=== PATIENT | male | born 1940 | race Caucasian/White ===

== ENCOUNTER 2018-02-23 11:41 | Observation (INO) | payer MEDICARE, BC ==
[2018-02-22 22:45] VITALS: BP 152/78
[2018-02-23] VITALS (19 sets, daily range): BP systolic 119–185; BP diastolic 47–84
[~2018-02-23] VITALS: Ht 172.7 cm; Wt 97.1 kg
[2018-02-23 12:31] LABS: HEMATOCRIT 37.2 % (42.0-52.0); HEMOGLOBIN 12.4 gm/dL (14.0-18.0); MCH 31.7 pg (26.0-34.0); MCHC 33.3 g/dL (28.0-37.0); MCV 95.1 fL (80.0-100.0); MPV 9.3 fl. (7.2-11.1); RBC 3.91 mil/uL (4.50-6.00); RDW-CV 15.5 % (10.5-14.5); WBC 3.8 thou/uL (4.0-11.0)
[2018-02-23 12:36] LABS: ANION GAP 9 mmol/L (7-16); BUN 13 mg/dL (7-18); CALCIUM 8.8 mg/dL (8.5-10.1); CHLORIDE 109 mmol/L (98-107); CO2 25 mmol/L (21-32); GLUCOSE 80 mg/dL (70-99); POTASSIUM 3.8 mmol/L (3.5-5.1); SODIUM 143 mmol/L (136-145)
[2018-02-23 12:40] LABS: ALBUMIN 3.4 g/dL (3.4-5.0); ALKALINE PHOSPHATASE 54 U/L (46-116); CHOLESTEROL 251 mg/dL (<200); HDL CHOLESTEROL 41 mg/dL (>40); LDL CHOLESTEROL 156 mg/dL (<100); SGOT 31 U/L (15-37); SGPT 38 U/L (30-65); TC:HDL 6.1 Ratio (Not establshd); TOTAL BILIRUBIN 0.9 mg/dL (<0.1-1.0); TOTAL PROTEIN 7.3 g/dL (6.4-8.2); TRIGLYCERIDE 274 mg/dL (<150); VLDL 55 mg/dL (<40)
[2018-02-23 12:41] LABS: APTT 25.9 Seconds (25.0-31.3); INR 1.2; PROTIME 11.3 Seconds (9.20-11.50); SERUM ASSESSMENT Clear
[2018-02-23] MEDS ORDERED: LANTUS100 UNIT/M SUBQ (12:45)
[2018-02-23] MEDS ORDERED: METFORMIN HCL500 MG PO (12:46)
[2018-02-23] MEDS ORDERED: HUMALOG100 UNIT/2 SUBQ (12:46)
[2018-02-23] MEDS ORDERED: COZAAR 50 MG TA50 M2 PO (12:47)
[2018-02-23] MEDS ORDERED: OXYBUTYNIN 5 MG5 M2 PO (12:49)
[2018-02-23] MEDS ORDERED: PROTONIX40 M1 PO (12:50)
--- NOTE | 2018-02-23 15:27 | EKG ---
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1940 Requested By: Suresh Ibanez Order Number: [id number] Reading MD: Suresh Ibanez Measurements Intervals [place] Rate: 74 P: -32 TN: 228 QRS: 29 QRSD: 89 T: 202 QT: 363 QTc: 403 Interpretive Statements Sinus rhythm Prolonged TN interval Abnormal T, consider ischemia, diffuse leads No previous ECG available for comparison Electronically Signed On 02-23-2018 15:27:10 CDT by Suresh Ibanez [email or web address] <ELECTRONICALLY SIGNED> By: Suresh Ibanez MD, [facility] 02/23/18 1527 1256 1256 Suresh Ibanez MD, [facility] /EPI
--- NOTE | 2018-02-23 16:47 | NUR ---
PT TRANSFERRED TO ROOM 231. RECEIVED REPORT FROM PRESCHOOL TEACHER'S ASSISTANT STAFF.PATIENT ALERT AND ORIENTED X4.VITAL SIGNS TAKEN AND RECORDED. CARDIAC MONITORING IN PLACE. PT ON RA WITH O2 SAT OF 96%. PT ON SR 1ST DEG ON TELE.PT IV LINE ON RAC PATENT, INTACT AND INFUSING WELL. ADMISSION HISTORY AND ASSESSMENT COMPLETED CHARTED. PT ORIENTED TO ROOM AND CALL LIGHT. PTS DAUGHTER IN LAW AT BEDSIDE.POST CATH SITE TO RIGHT GROIN CLEAN, DRY AND INTACT. PT INSRUCTED ON POST CATH INSTRUCTIONS. PT COMMUNICATES UNDERSTANDING.DENIES ANY PAIN OR DISCOMFORT. CALL LIGHT WITHIN REACH. WILL CONTINUE TO MONITOR PT.
[2018-02-24 04:00] VITALS: BP 143/53
--- NOTE | 2018-02-24 04:57 | NUR ---
PATIENT RESTED IN BED, NO ACUTE CHANGES. PATIENT DID NOT SHOW SIGNS OF DISTRESS. FALL PRECAUTIONS IN PLACE, BED ALARM ON, CALL LIGHT WITHIN REACH, HOURLY ROUNDING OBSERVED.
[2018-02-24 05:05] LABS: HEMATOCRIT 33.3 % (42.0-52.0); HEMOGLOBIN 11.3 gm/dL (14.0-18.0); MCH 32.2 pg (26.0-34.0); MCHC 33.9 g/dL (28.0-37.0); MPV 9.4 fl. (7.2-11.1); RBC 3.5 mil/uL (4.50-6.00); RDW-CV 15.4 % (10.5-14.5); WBC 3.2 thou/uL (4.0-11.0)
[2018-02-24 05:16] LABS: ALBUMIN 2.7 g/dL (3.4-5.0); CALCIUM 8.6 mg/dL (8.5-10.1); CREATININE 0.8 mg/dL (0.6-1.3); POTASSIUM 3.7 mmol/L (3.5-5.1); TOTAL BILIRUBIN 0.9 mg/dL (<0.1-1.0); TOTAL PROTEIN 5.8 g/dL (6.4-8.2); TROPONIN-I LEVEL 0.07 ng/mL (<0.06)
[2018-02-24 07:30] VITALS: BP 117/57
[2018-02-24 09:07] VITALS: BP 117/57
[2018-02-24] MEDS ORDERED: ASPIR 8181 MG PO (09:44)
[2018-02-24] MEDS ORDERED: ZETIA10 MG PO (09:45)
--- NOTE | 2018-02-24 09:46 | NUR ---
VSS, ASSUMED CARE IN THE AM, ASSESSMENT PERFORMED AND CHARTED, FALL PRECAUTIONS IN PLACE AND CALL LIGHT IN REACH, PT IS UP WITH ONE AND CANE, PT IS ON RA AND IS TRACING SR ON THE MONITOR, PT IS A&O4 AND DENIES ANY PAIN, CATH SIT IS C/D/I AND HIS GAOL IS TO D.C TO HOME ON DAY OF CARE.
[2018-02-24] MEDS ORDERED: NITROSTAT0.4 MG SUBLING (09:50)
[2018-02-24] MEDS ORDERED: NORVASC10 MG PO (09:51)
[2018-02-24] MEDS ORDERED: BRILINTA90 MG PO (09:52)
[2018-02-24] MEDS ORDERED: CRESTOR40 MG PO (09:54)
[2018-02-24 10:31] VITALS: BP 117/57
[2018-02-24 11:34] VITALS: BP 117/57
[2018-02-24 12:10] VITALS: BP 92/43
--- NOTE | 2018-02-24 12:45 | NUR ---
VSS, RECIEVED D/C INSTRUCTIONS FILLED OUT ORDERS AND TOOK OUT IV AND TELE MONITOR, PT DENIES ANY QUESTIONS OR CONCERNS AT TIME OF D/C. PT WALKED OUT VIA WHEEL CHAIR BY STAFF, ALL BELONGINGS GATHERED AND PLACED WITH PT, HOURLY ROUNDS COMPLETED.
--- NOTE | 2018-02-24 14:59 | EKG ---
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: : 1940 Requested By: Gareth Piña Order Number: [id number] Chikis MD: Gareth Piña Measurements Intervals [place] Rate: 69 P: -4 VA: 238 QRS: 34 QRSD: 97 T: 193 QT: 384 QTc: 412 Interpretive Statements Sinus rhythm Atrial premature complex Prolonged VA interval Repol abnrm suggests ischemia, anterolateral Compared to ECG 02/23/2018 12:56:28 Atrial premature complex(es) now present Early repolarization now present T-wave abnormality no longer present Possible ischemia still present Electronically Signed On 02-24-2018 14:58:56 CDT by Gareth Piña [email or web address] <ELECTRONICALLY SIGNED> By: Gareth Piña MD, [facility] 02/24/18 1458 1624 1624 Gareth Piña MD, [facility] /EPI
--- NOTE | 2018-02-24 15:04 | EKG ---
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: : 1940 Requested By: Gareth Piña Order Number: [id number] Reading MD: Gareth Piña Measurements Intervals [place] Rate: 72 P: -26 ND: 220 QRS: 38 QRSD: 98 T: 210 QT: 374 QTc: 410 Interpretive Statements Sinus rhythm Prolonged ND interval Repol abnrm suggests ischemia, anterolateral Compared to ECG 02/23/2018 12:56:28 Early repolarization now present T-wave abnormality no longer present Possible ischemia still present Electronically Signed On 02-24-2018 15:04:02 CDT by Gareth Piña [email or web address] <ELECTRONICALLY SIGNED> By: Gareth Piña MD, [facility] 02/24/18 1504 0750 0750 Gareth Piña MD, [facility] /EPI
--- NOTE | 2018-02-27 12:20 | CARD ---
[address] [address] CARDIAC CATH REPORT Name: KEENAN BANG Room: [address] Mikael Diaz#: [id number] Admission: 02/23/18 Attend Phys: Suresh Ibanez MD Discharge: 02/24/18 Date of : 41 Report #: [id number] THIS REPORT FOR: //name// APPROVED REPORT Study performed: 02/23/2018 12:08:32 Patient Details Patient Status: Out-Patient Room #: The patient is a 77 year-old male Event Personnel Suresh Ibanez Assistant Prosecuting Attorney, Isamar Greene RN Automatic Blocker, Emerald Mata, Makayla Parra RTR ScrubWang John Toy Designer Procedures Performed Art Access - R femoral artery* Left Heart Cath Coronaries, Bypass Grafts [id number] LHCCORCABG RICHY Revasc Graft Single RCA C9604 SVGREVSING Indication Positive stress test Risk Factors Hypercholesterolemia, Hypertension Previous Procedures/Diagnoses Previous CABG Admission/Lab Medications/Medications given during procedure Aspirin, Platelet Aff. Inhib., Angiomax bolus and infusion Procedure Narrative The patient was brought electively to the Cardiac Catheterization Laboratory and was prepped and draped in a sterile manner. The right femoral was infiltrated with 2% Lidocaine subcutaneous anesthesia. A 6fr Ultimum Sheath sheath was inserted into the right femoral artery. Coronary angiography was performed using coronary diagnostic catheters. The right coronary system was accessed and visualized with a 6fr JR 4 catheter. The left coronary system was accessed and visualized with a 6fr JL 4 catheter. The left ventricle was accessed and visualized with a 6fr Angled Pigtail catheter. Left ventricular/Aortic Valve gradient assessed via catheter pullback. Left ventriculogram was performed in [place] [address] CARDIAC CATH REPORT Name: KEENAN BANG Room: [address]#: [id number] Admission: 02/23/18 Attend Phys: Suresh Ibanez MD Discharge: 02/24/18 Date of : 41 Report #: [id number] femoral angiogram was performed . Closure device was deployed with a 6 Fr Angioseal STS 6Fr. The patient tolerated the procedure well and there were no complications associated with the procedure. There was no hematoma. Intraoperative Conscious Sedation Sedation start time: 13:36 Case end Time: 14:50 Fentanyl 50.0 mcg Versed 3.0 mg Fluoro Time: 29.7 minutes Dose: DAP 795645 cGycm2 4226.45 mGy Contrast Type and Amount: Omnipaque 215 ml Coronary Angiography The patient's coronary anatomy is right dominant. [place] Artery Percent Stenosis #1 widely patent saphenous vein graft to marginal branches of the circumflex #2 patent saphenous vein graft to the distal right coronary artery with 90% ostial stenosis #3. [place] filling of a patent [place] graft Diagnostic Cath Left Main 30% diffuse narrowing LAD 100% proximal occlusion Circumflex 100% mid vessel occlusion Right Coronary 100% mid vessel occlusion Left Ventriculography The left ventricle is normal in size with normal contractility. The left ventricular ejection fraction is estimated to be 65%. Left ventricular wall motion abnormalities are not present. There is no mitral insufficiency. Hemodynamics The aortic pressure is 146/59 mmHg with a mean of mmHg. The left ventricular pressure is 152/7 mmHg with a mean of mmHg. The left ventricular end diastolic pressure is 21 mmHg. There was no gradient across the aortic valve upon pullback. PCI Technique Lesion Percutaneous coronary intervention was performed [place] [address] CARDIAC CATH REPORT Name: KEENAN BANG Room: [address]#: [id number] Admission: 02/23/18 Attend Phys: Suresh Ibanez MD Discharge: 02/24/18 Date of : 41 Report #: [id number] saphenous vein graft the right coronary artery. The lesion stenosis prior to intervention was 90% with AUTUMN 3 flow. A 6FR AR 1 SH Guide Catheter was used to engage the ostium. A IG: BMW 190cm Interventional Guidewire was used to cross the lesion. BALLOON DILATION A Balloon catheter Mini Trek RX 2.0 X 8 was inserted and inflated up to 16.00atm for 13seconds. Additional Inflation: 16.00atm for 11seconds. STENT DEPLOYMENT A drug-eluting stent Xience Alpine RX 2.5X8 was inserted and inflated up to 14.00atm for 12seconds. Additional Inflation: 16.00atm for 13seconds. Additional Inflation: 18.00atm for 13seconds. POST STENT DEPLOYMENT BALLOON DILATION A Balloon catheter NC Trek RX 2.75 X 8 was inserted and inflated up to 15.00atm for 10seconds. Additional Inflation: 18.00atm for 13seconds. Final angiography reveals 10 % stenosis with AUTUMN 3 flow. Conclusion #1 significant multivessel coronary artery disease characterized by the following: A 100 % proximal LAD occlusion B1 100% midcircumflex occlusion C1 100% occlusion of the midportion of the dominant right coronary artery #2 graft study characterized by the following A widely patent vein graft to 3 marginal branches of the circumflex B patent saphenous vein graft to the distal right coronary artery with 90% ostial stenosis C flush filling of a patent [place] graft to the LAD #3 normal left ventricular systolic function, estimated ejection fraction being 65% [place] [address] CARDIAC CATH REPORT Name: KEENAN BANG [address]#: [id number] Admission: 02/23/18 Attend Phys: Suresh Ibanez MD Discharge: 02/24/18 Date of : 41 Report #: [id number] #4 modest elevation of left ventricular end-diastolic pressure at rest #5 successful percutaneous coronary intervention with deployment of a drug-eluting stent at site of 90% ostial stenosis in the vein graft to the right coronary artery with 10% residual narrowing following stent deployment and AUTUMN-3 flow to the distal vessel Recommendations Cardiac Risk Reduction Program Aggressive Medical Therapy Medications Administered Aspirin (any) Ticagrelor Diagnostic Cath Approved by: Suresh Ibanez MD Date/Time: 02/27/18 at 1217 hrs. <ELECTRONICALLY SIGNED> By: Gareth Piña MD, FACC 02/27/18 1220 1220 1220Gareth Piña MD, FACC /INF
--- NOTE | 2018-02-28 11:50 | D ---
[facility] [address] [place] [address] DISCHARGE SUMMARY Name: KEENAN BANG Room: [address] Mikael Diaz#: [id number] Admission: 02/23/18 Attend Phys: Suresh Ibanez MD Discharge: 02/24/18 Date of : 42 Report #: [id number] THIS REPORT FOR: //name// CC: Nick Ibanez DATE OF SERVICE: 02/24/2018 FINAL DIAGNOSES: 1. Unstable angina. 2. Status post percutaneous coronary intervention to the saphenous vein graft to the obtuse marginal. 3. Status post coronary artery bypass graft. 4. Hypertension. 5. Diabetes. HOSPITAL COURSE: The patient is a 77-year-old male who has a history of ischemic cardiomyopathy and prior bypass surgery, had been having increasing shortness of breath and ultimately stress test was abnormal. He underwent a diagnostic cardiac catheterization, which showed patency of his [place] to LAD graft, patency of his saphenous vein graft to diagonal, obtuse marginal vessels, but his right coronary artery vein graft had an 80% ostial stenosis. The ute artery was occluded. He tolerated the PCI with a drug-eluting stent to this vein graft. He will be discharged on Brilinta 90 mg p.o. b.i.d. and his other medications will remain unchanged. DISCHARGE MEDICATIONS: Include the following: Protonix 40 mg daily, losartan 100 mg daily, amlodipine 10 mg daily, baby aspirin 81 mg daily, Brilinta 90 mg p.o. b.i.d., insulin as directed by our office, ezetimibe 10 mg daily, and Crestor 40 mg daily. Followup in 1 month. <ELECTRONICALLY SIGNED> By: Suresh Ibanez MD, FACC 02/28/18 1150 1149 1831Suresh Ibanez MD, FACC /nt
--- NOTE | 2018-03-18 13:33 | H ---
[place] [address] HISTORY AND PHYSICAL Name: KEENAN BANG Room: [address] Mikael Diaz#: [id number] Admission: 02/23/18 Attend Phys: Suresh Ibanez MD Discharge: 02/24/18 Date of : 41 Report #: [id number] THIS REPORT FOR: //name// CC: Nick Ibanez DATE OF SERVICE: 02/23/2018 HISTORY AND PHYSICAL PREOP CATH CHIEF COMPLAINT: Chest pain and shortness of breath. HISTORY OF PRESENT ILLNESS: The patient is a 77-year-old man with a history of prior bypass surgery, had been having increasing shortness of breath and a subsequent nuclear stress test was abnormal. The symptoms occur with physical activity and not with rest. He has been compliant with his medical therapy. He has numerous cardiovascular risk factors with remote bypass surgery. He was evaluated with an outpatient nuclear stress test, which demonstrated the following; he was found to have a perfusion defect in the basal to mid inferior wall and preserved LV systolic function. PAST MEDICAL HISTORY: Significant for prior bypass surgery in 2007 with a [place] to LAD, saphenous vein graft to ramus intermedius and obtuse marginal, another saphenous vein graft to the right coronary artery, he has GERD, hypertension, hyperlipidemia. He has been somewhat intolerant to statins on a daily basis. He has insulin requiring diabetes, which is poorly controlled, obesity. PAST SURGICAL HISTORY: Bypass surgery. SOCIAL HISTORY: He is a former smoker, does not drink. REVIEW OF SYSTEMS: GASTROINTESTINAL: No bleeding or black colored stools. NEUROLOGIC: Denies numbness, weakness or slurred speech. Denies headaches or blurry vision. CARDIOVASCULAR: Positive dyspnea on exertion and occasional chest pain. SKIN: No rashes. GENITOURINARY: No dysuria or hematuria. MUSCULOSKELETAL: Positive arthritis. PCP: ____ [place] [address] HISTORY AND PHYSICAL Name: KEENAN BANG [address] [id number] Admission: 02/23/18 Attend Phys: Suresh Ibanez MD Discharge: 02/24/18 Date of : 41 Report #: [id number] LABORATORY DATA: Sodium 136, potassium 4.1, chloride 103, CO2 is 21, creatinine is 1.15. HOME MEDICATIONS: Amlodipine 10 mg daily, baby aspirin, insulin, losartan 100 mg daily, metformin 1000 mg p.o. b.i.d., nitroglycerin, Prilosec, and Crestor 20 mg, which he takes 3 days per week. PHYSICAL EXAMINATION: GENERAL: He is moderately obese, in no apparent distress. NECK: Supple. No jugular venous distention. CARDIOVASCULAR: Regular. There is no murmur. LUNGS: Clear to auscultation. ABDOMEN: Soft, nontender. EXTREMITIES: There is trace edema. SKIN: Warm and dry. IMPRESSION AND PLAN: 1. Dyspnea. This is probably an anginal equivalent given a stress test findings, in fact these were similar symptoms he had before his surgical revascularization. 2. Coronary artery disease. He has had prior bypass surgery. We will evaluate his bypass of his [place] arteries with a cardiac catheterization. The risks and benefits were described to the patient in lay terms. 3. Essential hypertension. 4. Hyperlipidemia. We will resurvey his lipids. <ELECTRONICALLY SIGNED> By: Suresh Ibanez MD, FACC 03/18/18 1333 1531 2111Suresh Ibanez MD, FACC /nt
== END 2018-02-24 12:45 | disposition home or self-care (01) ==
LOC: M.CL 11:41 → M.2W 15:04 → M.TBA-CV 15:04 → M.2W 15:24
PROVIDERS: Internal Medicine; ADMIT Internal Medicine Cardiovascular Disease
DX: I25.110 Atherosclerotic heart disease of native coronary artery with unstable angina pectoris (principal); G44.009 Cluster headache syndrome, unspecified, not intractable; R06.00 Dyspnea, unspecified; I10 Essential (primary) hypertension; E11.9 Type 2 diabetes mellitus without complications; I25.5 Ischemic cardiomyopathy; K21.9 Gastro-esophageal reflux disease without esophagitis; E78.00 Pure hypercholesterolemia, unspecified; M19.90 Unspecified osteoarthritis, unspecified site; Z79.4 Long term (current) use of insulin; Z98.890 Other specified postprocedural states; Z87.891 Personal history of nicotine dependence; Z95.5 Presence of coronary angioplasty implant and graft

== ENCOUNTER 2019-02-15 17:23 | Inpatient (IN) | payer MEDICARE, BC ==
[~2019-02-15] VITALS: Ht 172.7 cm; Wt 93.0 kg
--- NOTE | ~2019-02-15 | CON ---
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 The patient sees Dr. Arora at [facility] for management of his cirrhosis. The patient reports he underwent abdominal paracentesis about 2 weeks back and now he presents with worsening abdominal distention and back pain. The patient denies episodes of fevers, chills, nausea, vomiting, diarrhea, hematemesis or hematochezia. He denies prior episodes of confusion. The patient does report he had an EGD about 9 months back, which was relatively unremarkable. PAST MEDICAL HISTORY: The patient has history of hypertension, hyperlipidemia and nonalcoholic steatohepatitis, and diabetes mellitus. PAST SURGICAL HISTORY: The patient had surgery on right knee x 3, cataract surgery, and coronary artery bypass surgery in 2009. SOCIAL HISTORY: The patient denies any smoking at this time. Denies alcohol use or recreational drug use. FAMILY HISTORY: There is no family history of liver disease or colon cancer. REVIEW OF SYSTEMS: A comprehensive 10-point review of systems is negative except for abdominal distention, back pain and inability to move. PHYSICAL EXAMINATION: VITAL SIGNS: Temperature 36.8, pulse rate 82, respirations 16, blood pressure 128/51, pulse ox 99% on room air. GENERAL: The patient is alert, awake, oriented x 3. HEENT: Pupils are equal, round, reactive to light and accommodation. Mucous membranes are moist. There is no congestion. LUNGS: Clear to auscultation bilaterally. CARDIOVASCULAR: Rate and rhythm regular. S1, S2 present. ABDOMEN: Soft. There is a fluid thrill and distention due to presence of fluid. EXTREMITIES: There is 2+ pitting edema bilaterally. SKIN: Warm and dry. There is no asterixis and no ____ spider angiomata detected on the upper extremities. LABORATORY DATA: Hemoglobin 10.7, hematocrit 31.2, platelet count 93, WBC count 3.2. Sodium 141, potassium 4.7, chloride 108, bicarbonate 21, BUN 30, creatinine 1.6, total bilirubin 1, AST 34, ALT 24, alkaline [place] 84[place] [address] CONSULTATION Name: NEREIDA BANGJAYRODHAVAL Emily Room: [address] IN ..#: [id number] Admission: 02/15/19 Attend Phys: Tee Magallon MD Discharge: Date of : 42 Report #: [id number] IMAGING: Abdomen and pelvis CT: This demonstrates extensive abdominal and pelvic ascites, fat and fluid containing left inguinal hernia, small nodular liver likely reflecting hepatic cirrhosis, normal spleen, other findings as described above. ASSESSMENT AND PLAN: This is a pleasant 78-year-old gentleman with history of coronary artery disease, hypertension, diabetes, nonalcoholic steatohepatitis related cirrhosis presenting with worsening abdominal distention. 1. Nonalcoholic steatohepatitis cirrhosis. The patient appears to have decompensated nonalcoholic steatohepatitis cirrhosis with ascites. 2. Ascites. The patient underwent large volume paracentesis with removal of 8 liters of fluid. He will need albumin replacement. I recommended that the patient should be on a low sodium diet at home. We are going to give him 75 grams of albumin daily for 48 hours and assess his response. 3. Acute kidney injury. The patient's creatinine is 1.6, we do not know his baseline creatinine. This could be related to paracentesis, but we would like to get repeat creatinine tomorrow and withhold his diuretics today. Additionally, as mentioned above, I would give him 75 grams of albumin daily for 2 days to assess response to creatinine. 4. Varices. The patient had an EGD performed 9 months back, which apparently was normal. I will obtain records for this. 5. Encephalopathy. The patient does not have any history of encephalopathy. He does not take any medication for this. 6. HCC screening with CT scan performed during admission failed to show any liver masses, will need repeat imaging in 6 months. 7. Followup. The patient would like to follow up in our clinic, I can set up a followup appointment in 3-4 weeks. Thank you for this consultation. Please do not hesitate to call or contact us with any further questions. By: 1755 0330Jacob Jaeger MD /marlene
--- NOTE | ~2019-02-15 | CON ---
[address] [address] CONSULTATION Name: KEENAN BANG Room: [address] IN .R.#: [id number] Admission: 02/15/19 Attend Phys: Tee Magallon MD Discharge: Date of : 42 Report #: [id number] THIS REPORT FOR: //name// CC: Tee Magallon [facility] physician/PCP DATE OF SERVICE: 02/17/2019 REQUESTING PHYSICIAN: Tee Magallon MD REASON FOR CONSULTATION: Acute kidney injury. HISTORY OF PRESENT ILLNESS: The patient is a very pleasant 78-year-old gentleman, with medical history significant for nonalcoholic cirrhosis, admitted to the hospital because of back pain, inability to walk and abdominal distention. He was diagnosed here with massive ascites. Had a large volume paracentesis done yesterday, 8 liters of fluid were drained, but he is still having complaints of back pain. He has history of renal stones and CT scan revealed multiple calculi of both kidneys, also there was no obstruction. The patient's creatinine on admission was 1.8 and today is down to 1.5. PAST MEDICAL HISTORY: As I mentioned earlier. He also has history of diabetes mellitus type 2. SOCIAL HISTORY: No tobacco. No alcohol abuse. FAMILY HISTORY: Negative for renal disease. MEDICATIONS: Prior to admission reviewed. From my standpoint, he was on losartan and metformin and insulin REVIEW OF SYSTEMS: Positive for abdominal distention and back pain, especially in the left flank area and inability to walk. The rest of the systems reviewed and negative. PHYSICAL EXAMINATION: GENERAL: Awake, alert, oriented, pleasant gentleman. VITAL SIGNS: His blood pressure 118/45, heart rate 93, afebrile. HEENT: Pupils are round. NECK: Supple. LUNGS: Clear. CARDIOVASCULAR: Regular rate. ABDOMEN: Distended, ascites present. LOWER EXTREMITIES: No edema. ASSESSMENT: [place] [address] CONSULTATION Name: KEENAN BANG Room: [address] IN [facility]#: [id number] Admission: 02/15/19 Attend Phys: Tee Magallon MD Discharge: Date of : 42 Report #: [id number] 1. Acute kidney injury probably due to tense ascites. His renal functions are improving after large volume paracentesis. 2. Nonalcoholic cirrhosis with large tense ascites status post large volume paracentesis. 3. Multiple renal calculi, nonobstructive. Urology will be consulted. 4. Diabetes mellitus type 2. PLAN: From my standpoint, he is doing well. Renal function is improving. I would recommend probable ____ paracentesis or manage with diuretics. I agree with dose that were recommended by GI doctor. By: 1556 1955Alexandr Abdirizak Matthews MD /nt
[~2019-02-15 17:23] MED LIST: ASPIR 8181 MG PO; BRILINTA90 MG PO; COZAAR 50 MG TA50 M2 PO; CRESTOR40 MG PO; HUMALOG100 UNIT/2 SUBQ; LANTUS100 UNIT/M SUBQ; METFORMIN HCL500 MG PO; NITROSTAT0.4 MG SUBLING; NORVASC10 MG PO; OXYBUTYNIN 5 MG5 M2 PO; PROTONIX40 M1 PO; ZETIA10 MG PO
[2019-02-15 17:47] VITALS: BP 149/68
[2019-02-15 18:03] LABS: ABSOLUTE EOSINOPHILS 0.2 thou/uL (0.0-0.7); ABSOLUTE NEUTROPHILS 2.3 thou/uL (1.6-8.1); NUCLEATED RBCS 0 /100WBC; RBC 3.46 mil/uL (4.50-6.00); WBC 4.1 thou/uL (4.0-11.0)
[2019-02-15 18:05] LABS: ABSOLUTE MONOCYTES 0.5 thou/uL (0.0-1.2); EOSINOPHILS 4.4 %; HEMATOCRIT 34.1 % (42.0-52.0); HEMOGLOBIN 11.7 gm/dL (14.0-18.0); LYMPHOCYTES 25.3 %; MCH 33.7 pg (26.0-34.0); MCHC 34.3 g/dL (28.0-37.0); MCV 98.3 fL (80.0-100.0); MONOCYTES 12.7 %; MPV 9.1 fl. (7.2-11.1); PLATELET COUNT* 116 thou/uL (150-400); POLYS 56.6 %; RDW-CV 14.9 % (10.5-14.5)
[2019-02-15 18:09] LABS: URINE BILIRUBIN NEGATIVE (Negative); URINE BLOOD NEGATIVE (Negative); URINE CLARITY CLEAR; URINE COLOR YELLOW; URINE GLUCOSE-RANDOM NEGATIVE (Negative); URINE KETONES NEGATIVE (Negative); URINE LEUKOCYTES-REFLEX NEGATIVE (Negative); URINE NITRITE-REFLEX NEGATIVE (Negative); URINE PROTEIN NEGATIVE (Negative); URINE SPECIFIC GRAVITY 1.015 (1.005-1.030); URINE UROBILINOGEN 0.2 E.U./dl (0.2-1.0)
[2019-02-15 18:09] LABS: CALCIUM 9.1 mg/dL (8.5-10.1); CREATININE 1.8 mg/dL (0.6-1.3); POTASSIUM 4.3 mmol/L (3.5-5.1)
[2019-02-15 18:13] LABS: ALBUMIN 2.7 g/dL (3.4-5.0); TOTAL PROTEIN 7.3 g/dL (6.4-8.2)
[2019-02-15 18:36] LABS: APTT 27.6 Seconds (25.0-31.3); INR 1.1; PROTIME 11.3 Seconds (9.20-11.50)
[2019-02-15 18:48] LABS: CK-MB MASS 0.5 ng/mL (<0.5-3.6); MAGNESIUM 1.7 mg/dL (1.8-2.4); NT-PRO BRAIN NAT PEPTIDE 532 pg/mL (<300); TROPONIN-I LEVEL <0.06 ng/mL (<0.06)
[2019-02-15 21:17] VITALS: BP 124/51
[2019-02-16 01:14] LABS: ABSOLUTE EOSINOPHILS 0.1 thou/uL (0.0-0.7); ABSOLUTE LYMPHOCYTES 0.7 thou/uL (0.8-5.3); ABSOLUTE MONOCYTES 0.4 thou/uL (0.0-1.2); BASOPHILS 0.5 %; EOSINOPHILS 3.8 %; HEMATOCRIT 31.2 % (42.0-52.0); HEMOGLOBIN 10.7 gm/dL (14.0-18.0); LYMPHOCYTES 20.7 %; MCH 33.9 pg (26.0-34.0); MCHC 34.2 g/dL (28.0-37.0); MCV 98.9 fL (80.0-100.0); MONOCYTES 11.9 %; MPV 9.7 fl. (7.2-11.1); NUCLEATED RBCS 0 /100WBC; PLATELET COUNT* 93 thou/uL (150-400); POLYS 63.1 %; RBC 3.15 mil/uL (4.50-6.00); WBC 3.2 thou/uL (4.0-11.0)
[2019-02-16 02:45] LABS: CALCIUM 8.8 mg/dL (8.5-10.1); CREATININE 1.6 mg/dL (0.6-1.3); POTASSIUM 4.7 mmol/L (3.5-5.1)
--- NOTE | 2019-02-16 07:06 | NUR ---
PT ADMITTED TO ROOM 115 FROM ER @ ABOUT 2129. PT ALERT AND ORIENTED. VSS ON RA. SON PARTICIPATED IN PROVIDING ADMISSION HX. PT TO UNDERGO PARECENTESIS TODAY FOR ASCITES. MEDS GIVEN PER EMAR. 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 DOES NOT EAT EGG, MEAT OR FISH. HOURLY ROUNDINGS MADE. NEPHROLOGY AND GI CONSULTS CALLED IN THIS AM. CALL LIGHT WITHIN REACH. WILL CONTINUE TO MONITOR.
[2019-02-16 07:35] VITALS: BP 136/83
[2019-02-16 11:40] LABS: BF RBC <1000 /mm3; TOTAL CELL COUNT 176 /mm3
[2019-02-16 12:32] LABS: SOURCE ASCITES
[2019-02-16 12:33] LABS: CLARITY SLIGHTLY HAZY; TOTAL VOLUME 8660 ml
[2019-02-16 13:05] LABS: BF LYMPHOCYTES 14 %; BF MONOCYTES 77 %; BF POLYS 9 %; BF TISSUE 9 /100 WBC
[2019-02-16 15:54] VITALS: BP 128/51
--- NOTE | 2019-02-16 15:54 | EKG ---
[place] [address] ELECTROCARDIOGRAM REPORT Name: KEENAN BANG Room: [address] ADM IN [facility].#: [id number] Admission: 02/15/19 Attend Phys: Tee Magallon MD Discharge: Date of : 42 Report #: [id number] THIS REPORT FOR: //name// [facility] ED Test Date: 2019-02-15 Test Time: 18:31:26 Pat Name: KEENAN BANG Department: Room: [facility] Gender: M Non Destructive Testing Supervisor: : 1940 Requested By: Travis Bowens Order Number: [id number] MD: Gareth Piña Measurements Intervals [place] Rate: 107 P: -38 MA: 177 QRS: 96 QRSD: 96 T: 180 QT: 306 QTc: 409 Interpretive Statements Sinus or ectopic atrial tachycardia Right axis deviation Repol abnrm, suggests ischemia Compared to ECG 02/24/2018 07:50:30 Right-axis deviation now present Sinus rhythm no longer present Possible ischemia still present Electronically Signed On 02-16-2019 15:54:21 CDT by Gareth Piña [email or web address] <ELECTRONICALLY SIGNED> By: Gareth Piña MD, [facility] 02/16/19 [id number] Gareth Piña MD, [facility] /EPI
--- NOTE | 2019-02-16 16:30 | NUR ---
PT.SITTING ON SIDE OF BED. CM INTRODUCED ROLE OF CM. HE SAID HE LIVES WITH HIS IN AN APT. HIS SON IS SUPPORTIVE. PT.IS NORMALLY INDEPENDENT. USES A CANE. 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 PT.DRIVES. DOES NOT. GOAL IS TO RETURN HOME AT DISCHARGE. HE SAID HE WAS HAVING ALOT OF LOWER BACK PAIN AT THIS TIME. INFORMED NURSING. CM WILL FOLLOW.
--- NOTE | 2019-02-16 17:01 | NUR ---
PT REMAINED ALERT AND ORIENTED. HOME MEDS RESTARTED. INSULIN GIVEN ORDERED. PARACENTESIS TODAY. ALBUMIN GIVEN ORDERED. TYLENOL AND FLEXERIL GIVEN FOR PAIN. FALL RISK PRECAUTIONS IN PLACE. HOURLY ROUNDING COMPLETED. WILL CONTINUE TO MONITOR.
[2019-02-16 20:15] VITALS: BP 144/54
--- NOTE | 2019-02-17 05:34 | NUR ---
PT WALKING IN ROOM WITH CANE AT START OF SHIFT, CO BACK PAIN, STATING TYLENOL NOT VERY EFFECTIVE FOR BACK PAIN. AOX4. RFA SL. HS ACCUCHECK 125, LANTUS GIVEN ORDERED WITH SNACK. PT REQUESTING STRONGER PAIN MED AND MORE FREQUENT FLEXERIL- DR NOTIFIED AND ORDERS RECEIVED-PT STATES HE WILL TAKE THE MEDICATION "IN THE MORNING." ALBUMIN GIVEN IV ORDERED. DRSG TO RLQ ABD CDI AT PARACENTESIS SITE. ABLE TO USE CALL LITE AND MAKE NEEDS KNOWN.
[2019-02-17 08:00] VITALS: BP 118/45
[2019-02-17 09:56] LABS: ABSOLUTE EOSINOPHILS 0.1 thou/uL (0.0-0.7); ABSOLUTE LYMPHOCYTES 0.6 thou/uL (0.8-5.3); ABSOLUTE MONOCYTES 0.3 thou/uL (0.0-1.2); ABSOLUTE NEUTROPHILS 1.5 thou/uL (1.6-8.1); BASOPHILS 1.1 %; EOSINOPHILS 5.9 %; HEMATOCRIT 29.8 % (42.0-52.0); HEMOGLOBIN 10.2 gm/dL (14.0-18.0); LYMPHOCYTES 22.3 %; MCH 33.9 pg (26.0-34.0); MCHC 34.2 g/dL (28.0-37.0); MCV 99.2 fL (80.0-100.0); MPV 9.3 fl. (7.2-11.1); NUCLEATED RBCS 0 /100WBC; PLATELET COUNT* 88 thou/uL (150-400); POLYS 59.7 %; RDW-CV 15.1 % (10.5-14.5); WBC 2.5 thou/uL (4.0-11.0)
[2019-02-17 10:14] LABS: ALBUMIN 3.1 g/dL (3.4-5.0); CALCIUM 8.4 mg/dL (8.5-10.1); CREATININE 1.5 mg/dL (0.6-1.3); POTASSIUM 4.4 mmol/L (3.5-5.1); TOTAL BILIRUBIN 0.9 mg/dL (<0.1-1.0); TOTAL PROTEIN 6.4 g/dL (6.4-8.2)
[2019-02-17 14:09] LABS: BODY FLUID AMYLASE 35 U/L (()); BODY FLUID LDH 54 IU/L (()); BODY FLUID PROTEIN 1.9 g/dL (())
[2019-02-17 16:34] VITALS: BP 120/51
--- NOTE | 2019-02-17 17:44 | NUR ---
ASSUMED CARE OF PATIENT AT APPROX 0730. ALERT AND ORIENTED X4. ASSESSMENT COMPLETED AND CHARTED. VSS ON ROOM AIR. PAIN HAS BEEN MANAGED WITH HYDROCODONE AND FLEXERIL. ALBUMIN INFUSED ORDERED. ORTHO CONSULTED FOR HIP/BACK, NO INTERVENTION ADDED OTHER THAN LIDOCAINE PATCH, APPLIED TO BACK/HIP AREA WHERE PATIENT HAS PAIN. UROLOGY CONSULTED FOR POSSIBLE PAIN RELATED TO NON OBSTRUCTING KIDNEY STONES NOTED ON CT SCAN, NO INTERVENTION FROM UROLOGY AT THIS TIME. FALL PRECAUTIONS IN PLACE, PATIENT UP STAND BY ASSIST WITH CANE. HOURLY ROUNDS COMPLETED. CALL LIGHT WITHIN REACH, PATIENT USES APPROPRIATELY. WILL CONTINUE TO MONITOR.
[2019-02-17 20:05] VITALS: BP 132/58
[2019-02-18 03:44] LABS: ABSOLUTE EOSINOPHILS 0.2 thou/uL (0.0-0.7); ABSOLUTE LYMPHOCYTES 0.8 thou/uL (0.8-5.3); ABSOLUTE MONOCYTES 0.3 thou/uL (0.0-1.2); ABSOLUTE NEUTROPHILS 1.5 thou/uL (1.6-8.1); BASOPHILS 1.1 %; EOSINOPHILS 7.3 %; HEMATOCRIT 33.7 % (42.0-52.0); HEMOGLOBIN 11.3 gm/dL (14.0-18.0); LYMPHOCYTES 29.8 %; MCH 33.5 pg (26.0-34.0); MCHC 33.5 g/dL (28.0-37.0); MCV 99.8 fL (80.0-100.0); MONOCYTES 10.8 %; MPV 9.5 fl. (7.2-11.1); NUCLEATED RBCS 0 /100WBC; PLATELET COUNT* 105 thou/uL (150-400); RBC 3.37 mil/uL (4.50-6.00); RDW-CV 15.2 % (10.5-14.5); WBC 2.9 thou/uL (4.0-11.0)
[2019-02-18 04:03] LABS: CALCIUM 8.8 mg/dL (8.5-10.1); CREATININE 1.6 mg/dL (0.6-1.3); POTASSIUM 4.3 mmol/L (3.5-5.1)
--- NOTE | 2019-02-18 05:08 | NUR ---
PT SLEPT WELL OVERNIGHT, CONTINUES TO COMPLAIN OF LOW BACK PAIN. UP WITH SBA AND CANE IN ROOM. HS ACCUCHECK 148, LANTUS GIVEN ORDERED. RAC SL IV, ALBUMIN GIVEN. RECEIVING FLEXERIL AND HYDROCODONE PRN FOR BACK PAIN. AM LABS DRAWN. ABLE TO USE CALL LITE AND MAKE NEEDS KNOWN. RAC SL, ALBUMIN GIVEN ORDERED.
[2019-02-18 07:41] VITALS: BP 129/59
[2019-02-18 16:02] VITALS: BP 139/52
--- NOTE | 2019-02-18 16:42 | CON ---
[address] [address] CONSULTATION Name: KEENAN BANG Room: [address] IN .R.#: [id number] Admission: 02/15/19 Attend Phys: Tee Magallon MD Discharge: Date of : 42 Report #: [id number] THIS REPORT FOR: //name// CC: Tee Magallon [facility] physician/PCP DATE OF SERVICE: 02/17/2019 UROLOGY CONSULT REFERRING PHYSICIAN: Dr. Matthews. REASON FOR CONSULTATION: Renal calculi. HISTORY OF PRESENT ILLNESS: This is a 78-year-old male who reports a long history of renal stone disease. He reports he has undergone multiple procedures in the past, but does not recall which urologist he saw. He reports he has not had stones in quite a few years to his knowledge. He complains of bilateral low back pain. He denies dysuria, hematuria, or difficulty voiding. He denies fragment passage. He was seen by Nephrology due to renal insufficiency and Urology was consulted subsequently because of his renal calculi. PAST MEDICAL HISTORY: Significant for cirrhosis with ascites, hypertension, diabetes, gastroesophageal reflux, hyperlipidemia. PAST SURGICAL HISTORY: Includes stone surgeries of uncertain nature, knee surgery, cataract surgery, coronary bypass. ALLERGIES: No known drug allergies. MEDICATIONS: List is reviewed. FAMILY HISTORY: He does not know any family history of renal disease or renal stones. SOCIAL HISTORY: He denies use of alcohol or tobacco. REVIEW OF SYSTEMS: As per the history of present illness. He complains of back pain and abdominal fullness. He denies shortness of breath. Denies chest pain or palpitations. Denies nausea, vomiting, or fever. PHYSICAL EXAMINATION: VITAL SIGNS: Temperature 37.0, pulse 93, respirations 18, blood pressure 118/45. GENERAL: This is a 78-year-old male in no acute distress. He is awake, alert and answers questions appropriately. [place] [address] CONSULTATION Name: KEENAN BANG Room: [address] IN [facility]#: [id number] Admission: 02/15/19 Attend Phys: Tee Magallon MD Discharge: Date of : 42 Report #: [id number] HEENT: Normocephalic, atraumatic. NECK: Supple. No JVD. LUNGS: Respiratory effort and excursion are normal. Chest wall is nontender. CARDIAC: Rhythm is regular. Radial pulses are palpable. ABDOMEN: Nontender. Abdomen is distended, likely due to his ascites. Spine and costovertebral angles are nontender. EXTREMITIES: Warm. He has bilateral lower extremity edema. He moves all extremities well and is ambulatory. GENITOURINARY: Skin of the penis and scrotum is normal. Urethral meatus is orthotopic. Foreskin is retractable easily. Testes are nontender with no testicular masses palpable and no tenderness. LABORATORY DATA: Include sodium 141, potassium 4.4, chloride 108, CO2 22, BUN 29, creatinine 1.5, glucose 226. Hemoglobin 10.2, white count 2.5, platelet count 88,000. Urinalysis was negative. Noncontrast CT scan of the abdomen and pelvis revealed from a urologic standpoint multiple small bilateral nonobstructing renal calculi as well as probable left renal cyst. Findings were discussed with the patient. IMPRESSION: 1. Nonobstructing bilateral renal calculi. These are not likely contributing to his back pain. He was advised regarding this. We discussed stone prevention measures. Recommended outpatient followup after recovery from his acute illness. 2. Renal insufficiency. Advised the patient this is also not likely related to his nonobstructing renal calculi. Nephrology is evaluating him for renal insufficiency. Urology will sign off. We will tentatively set up followup in the office in approximately one month. Please call for concerns. <ELECTRONICALLY SIGNED> By: Gareth Odell MD 02/18/19 1642 [id number] Odell MD /nt
[2019-02-18 19:30] VITALS: BP 122/52
[2019-02-19 04:51] LABS: ABSOLUTE EOSINOPHILS 0.2 thou/uL (0.0-0.7); ABSOLUTE LYMPHOCYTES 0.6 thou/uL (0.8-5.3); ABSOLUTE MONOCYTES 0.4 thou/uL (0.0-1.2); ABSOLUTE NEUTROPHILS 1.2 thou/uL (1.6-8.1); EOSINOPHILS 7.3 %; HEMATOCRIT 29.8 % (42.0-52.0); HEMOGLOBIN 10.1 gm/dL (14.0-18.0); LYMPHOCYTES 26.1 %; MCH 33.7 pg (26.0-34.0); MCV 99.2 fL (80.0-100.0); MONOCYTES 15.4 %; MPV 9.7 fl. (7.2-11.1); NUCLEATED RBCS 0 /100WBC; PLATELET COUNT* 86 thou/uL (150-400); POLYS 50.2 %; RDW-CV 14.8 % (10.5-14.5); WBC 2.4 thou/uL (4.0-11.0)
[2019-02-19 04:59] LABS: CALCIUM 8.7 mg/dL (8.5-10.1); CREATININE 1.5 mg/dL (0.6-1.3); POTASSIUM 5.3 mmol/L (3.5-5.1)
--- NOTE | 2019-02-19 06:22 | NUR ---
PT ALERT AND ORIENTED. VSS ON RA. PT SLEPT OFF AND ON THIS SHIFT. NO PAIN MEDS GIVEN THIS SHIFT. PT TO THE BATHROOM FOR VOIDING WITH HIS WALKER. MEDS GIVEN PER EMAR. PT PLEASANT AND APPROPRIATE. CALL LIGHT WITHIN REACH. HOURLY ROUNDINGS MADE. WILL CONTINUE TO MONITOR.
[2019-02-19 08:00] VITALS: BP 129/61
--- NOTE | 2019-02-19 08:00 | NUR ---
ASSUMED PT CARE AT 0700, A&O X4, UP AD GISELA, WHEEZING PRESENT IN ALL LOBES, VSS, RA BUT STATES HE GETS "SHORT OF BREATH WHEN HE GETS UP AND WALKS SO HE USES HIS O2". CONT ON IV ABTS, STEROIDS, AND BTX. PT TO POSSIBLY DC TOMORROW PER DR WALL. WILL CONT POC/
--- NOTE | 2019-02-19 12:28 | NUR ---
PT.EATING LUNCH. TO BE DISCHARGED TODAY. DISCUSSED HOME HEALTH WITH HIM AND ASKED IF HE WOULD BE AGREEABLE TO A NURSE COMING OUT TO SEE HIM AT HIS HOUSE, TO CHECK ON HIS MEDICAL STATUS,ASCITES, ETC. HE SAID NO HE DID NOT WANT THAT. EDUCATED ON NEEDING TO F/U WITH PCP, LAB WORK,ETC. HE SAID HE SEES IN [place]. HE WILL MAKE SURE HE FOLLOWS UP AND FOLLOWS 'S INSTRUCTIONS.
[2019-02-19] MEDS ORDERED: LASIX 40 MG TAB40 M2 PO (13:39)
[2019-02-19] MEDS ORDERED: ALDACTONE50 MG PO (13:45)
[2019-02-19] MEDS ORDERED: LIDOCAINE1 EACH TRANSDERM (14:09)
[2019-02-19] MEDS ORDERED: NORCO 5-325 TA1 EAC1 PO (14:12)
[2019-02-19] MEDS ORDERED: OXYBUTYNIN 5 MG5 M2 PO (14:17)
[2019-02-19 14:22] VITALS: BP 129/61
--- NOTE | 2019-02-19 16:05 | NUR ---
ASSUMED PT CARE AT 0700, A&O X4, VSS, RA, LS CTA. ABDOMEN DISTENDED AND FIRM D/T ASCITIES, DENIES ANY PAIN. STANDBY ASSIST WITH CANE, DENIES ANY SOA WITH EXERTION. HOME MEDICATIONS CHECKED AND CORRECTED PER PT, DR CAPONE NOTIFIED. HOURLY ROUNDING COMPLETED, PT DISCHARGED HOME WITH NURSING STAFF AND SON. EDUCATED ON DISCHARGE INSTRUCTIONS INCLUDING FOLLOW UP APPTS AND MEDICATIONS. IV REMOVED PRIOR TO DISCHARGE.
[2019-02-20 15:57] LABS: SOURCE ABDOMINAL
== END 2019-02-19 16:15 | disposition home or self-care (01) | DRG 432 ==
LOC: M.ERS 17:23 → M.TBA-ER 18:34 → M.ORTHSURG 18:34
PROVIDERS: Emergency Medicine; ADMIT Internal Medicine
PROC: 0W9G3ZZ Drainage of Peritoneal Cavity, Percutaneous Approach (ICD-10-PCS; principal; 2019-02-16)
DX: K74.60 Unspecified cirrhosis of liver (principal); E43 Unspecified severe protein-calorie malnutrition; N17.9 Acute kidney failure, unspecified; G93.40 Encephalopathy, unspecified; K21.9 Gastro-esophageal reflux disease without esophagitis; M54.5 Low back pain; K75.81 Nonalcoholic steatohepatitis (NASH); I83.90 Asymptomatic varicose veins of unspecified lower extremity; N20.0 Calculus of kidney; E11.649 Type 2 diabetes mellitus with hypoglycemia without coma; R06.03 Acute respiratory distress; M16.7 Other unilateral secondary osteoarthritis of hip; S86.912A Strain of unspecified muscle(s) and tendon(s) at lower leg level, left leg, initial encounter; I10 Essential (primary) hypertension; X58.XXXA Exposure to other specified factors, initial encounter; Z95.1 Presence of aortocoronary bypass graft; Z87.442 Personal history of urinary calculi; Z98.49 Cataract extraction status, unspecified eye; Z79.82 Long term (current) use of aspirin; Z79.84 Long term (current) use of oral hypoglycemic drugs; Z79.4 Long term (current) use of insulin; Z79.899 Other long term (current) drug therapy; Y93.89 Activity, other specified; Y92.89 Other specified places as the place of occurrence of the external cause; Y99.8 Other external cause status; Z68.31 Body mass index [BMI] 31.0-31.9, adult